=== PATIENT | female | born 1960 | race Caucasian/White ===

== ENCOUNTER → 2016-10-24 | Outpatient (CLI) | payer OTHER ==
--- NOTE | 2016-10-24 08:25 | MA ---
Screening Digital Mammogram Clinical Indications: Routine screening. Technique: Standard cephalocaudal and mediolateral oblique projections are obtained. This examinati on is processed by the [employer] computer aided detection system. Comparison: August 2013 , August 2009 and October 2007 Breast density: B; There are scattered fibroglandular densities. Findings: CAD was reviewed. Architectural distortion developing in an area of parenchymal density in the outer left breast seen on the cc view. A focal asymmetry behind the inner left areola is stable s [id number]. The right breast is stable.. Impression: Developing architectural distortion outer left breast.. BI-RADS 0. Additional imaging required left breast. Recommendation: Diagnostic mammogram including CC spot compression view, off midline CC views by 5 d egrees and true lateral view. If persistent, attempt to localize in the orthogonal plane and then pro ceed to ultrasound at the discretion of the interpreting radiologist.. [facility] will send a result letter to the patient. Negative mammography should not preclude additional workup of a clinically suspicious finding. The patient's information is entered into a reminder system with a target due date for her next mammo gram.
--- NOTE | 2016-10-24 09:35 | DX ---
DEXA Bone Mineral Densitometry Clinical Indications: Postmenopausal, post hysterectomy and oophorectomy, HRT x10 years Comparison: 08/23/13 (normal) Technique: Bone Mineral Densitometry (BMD) by Dual Energy X-Ray Absorptiometry (DEXA) was performed utilizing the [employer] scanner. The lumbar spine was evaluated in the AP projection. The bilat eral hips and forearm were evaluated in the AP projection. Vertebral fracture assessment was also pe rformed. AP Lumbar Spine: The L1, L2, L3 and L4 vertebral bodies were evaluated. BMD: 1.151 gm/cm2 T-score: -0.4 SD Z-score: 0.1 SD No significant change. AP Left Hip: Total BMD: 0.937 gm/cm2 T-score: 0.6 SD Z-score: -0.2 SD No significant change. AP Right Hip: Neck BMD: 0.872 gm/cm2 T-score: -1.2 SD Z-score: -0.4 SD No significant change in total BMD AP Left Forearm, 09/24: BMD: 0.911 gm/cm2 T-score: 0.4 SD Z-score: 0.9 SD No significant change. Vertebral Fracture Assessment: No significant fracture deformity. No prevertebral aortic calcificati on, significant marginal bone spurring, facet arthrosis, or intrinsic vertebral body sclerosis that would effect the accuracy of the lumbar spine BMD measurement. Conclusion: Considering the lowest measured site, the patient has low bone density. The ten year FRAX risk for any major osteoporotic fracture is 11% and for a hip fracture is 0.7%. Any bone loss in this patient is probably related to aging or estrogen deficiency. To prevent osteoporosis and to promote the patient's bone density, the following recommendations shou ld be considered: 1. Pursue a regular regimen of weightbearing and muscle strengthening exercises in order to reduce t he risk of falls and fractures (as tolerated by the patient's general medical condition). 2. Ensure that daily dietary calcium uptake is maximized. 3. Consider checking the serum vitamin D level. Ensure that intake of vitamin D is 600 IU per day (fo r all ages through 70) . 4. Consider follow-up DEXA scan in 5 years to assess the rate of bone loss in this patient.
== END ==
LOC: BRMIMAGING 08:00
DX: Z12.31 Encounter for screening mammogram for malignant neoplasm of breast (principal); Z13.820 Encounter for screening for osteoporosis; M85.80 Other specified disorders of bone density and structure, unspecified site
CPT/HCPCS: G0202

== ENCOUNTER → 2016-11-06 | Outpatient (CLI) | payer OTHER | LOC: BRMIMAGING 08:54 | DX: Z12.39 Encounter for other screening for malignant neoplasm of breast (principal); R92.8 Other abnormal and inconclusive findings on diagnostic imaging of breast | CPT/HCPCS: G0206 ==

== ENCOUNTER → 2019-02-17 | Outpatient (CLI) | payer OTHER | LOC: BRMIMAGING 12:47 ==